=== PATIENT | male | born 1990 | race African-American/Black ===

== ENCOUNTER 2024-03-15 01:04 | Emergency (ER) | payer BC ==
[2024-03-15] MEDS ORDERED: Ketorolac Tromethamine 30 MG (1 mL) VIAL ONE (01:58)
[2024-03-15] MEDS ORDERED: Cyclobenzaprine 10 MG TAB ONE (01:58)
== END 2024-03-15 03:04 | disposition home or self-care (01) ==
LOC: ERS 01:04
DX: M54.50 Low back pain, unspecified (principal); Z55.6 Problems related to health literacy
CPT/HCPCS: 96372; 99283; J1885